=== PATIENT | female | born 1945 | race Caucasian/White ===

== ENCOUNTER 2022-11-27 13:52 | Inpatient (IN) | payer MEDICARE, OTHER ==
[2022-11-27] MEDS ORDERED: Metoprolol Tartrate 5 MG/5 ML VIAL ONE ×2 (14:23→15:18)
[2022-11-27] MEDS ORDERED: Aspirin Chewable 81 MG TAB ONE (14:23)
[2022-11-27 14:50] LABS: #Eosinphils 0.3 thou/uL (0.0-0.7); #Lymphocytes 2.2 thou/uL (1.20-3.40); #Monocytes 0.7 thou/uL (0.11-0.59); #Neutrophils 4.6 thou/uL (1.40-6.50); %Basophils 0.5 % (0.0-1.0); %Eosinophils 3.4 % (0.0-10.0); %Lymphocytes 28.5 % (21.0-51.0); %Monocytes 8.4 % (0.0-10.0); %Neutrophils 59.1 % (42.0-75.0); Hemoglobin 16.5 g/dL (12.0-16.0); Mean Corpuscular HGB CONC 33.2 g/dL (32.0-36.0); Mean Corpuscular Hemoglobin 32.7 pg (27.0-31.0); Mean Corpuscular Volume 98.4 fl (78.0-98.0); Mean Platelet Volume 8.5 fL (7.4-10.4); Platelet Count 232 10x3/uL (130-400); RBC Distribution Width 12.1 % (11.5-14.5); Red Blood Cell (RBC) Count 5.05 mill/uL (4.20-5.40); White Blood Cell (WBC) Count 7.8 10x3/uL (4.8-10.8)
[2022-11-27] MEDS ORDERED: Diltiazem 125 MG/25 ML SDV ONE (15:16)
[2022-11-27 15:19] LABS: ALT (SGPT) 13 U/L (8-55); AST (SGOT) 14 U/L (5-34); Albumin 4.3 g/dL (3.4-4.8); Alkaline Phosphatase 80 U/L (40-110); Anion Gap 12 mmol/L (10-20); BUN (Urea Nitrogen) 11 mg/dL (9.8-20.1); Calc. Creatinine Clearance 0 mL/min (70-130); Calcium 9.7 mg/dL (7.8-10.44); Carbon Dioxide 27 mmol/L (23-31); Chloride 104 mmol/L (98-107); Estimated GFR 80; Globulin 2.7 g/dL (2.4-3.5); Glucose 100 mg/dL (83-110); Potassium 3.4 mmol/L (3.5-5.1); Sodium 140 mmol/L (136-145)
[2022-11-27] MEDS ORDERED: Acetaminophen 325 MG TAB PO PRN (17:55)
[2022-11-27] MEDS ORDERED: Ondansetron ODT 4 MG TAB PO PRN (17:55)
[2022-11-27 18:07] LABS: Troponin I 0.014 ng/mL (< 0.028)
[2022-11-27] MEDS ORDERED: Diltiazem 125 MG in Sodium Chloride 0.9% 100 ML IVPB SCH (18:15)
[2022-11-27 18:28] VITALS: BMI 30.2
[2022-11-27 19:00] LABS: Magnesium 1.9 mg/dL (1.6-2.6)
[2022-11-27] MEDS ORDERED: Hydrochlorothiazide 25 MG TAB PO SCH (21:00)
[2022-11-27] MEDS ORDERED: Lisinopril 10 MG TAB PO SCH (21:00)
[2022-11-27] MEDS: Atorvastatin Calcium 20 MG TAB PO SCH (21:31)
[2022-11-27] MEDS: DorzolamidE/Timolol 2%/0.5% Ophth Soln 10 ml Bottle EA EYE SCH (21:31)
[2022-11-27 21:37] LABS: Troponin I 0.011 ng/mL (< 0.028)
[2022-11-28 05:21] LABS: #Basophils 0.1 thou/uL (0.0-0.2); #Eosinphils 0.3 thou/uL (0.0-0.7); #Lymphocytes 2.2 thou/uL (1.20-3.40); #Monocytes 0.7 thou/uL (0.11-0.59); #Neutrophils 4.4 thou/uL (1.40-6.50); %Basophils 0.8 % (0.0-1.0); %Lymphocytes 28.5 % (21.0-51.0); %Monocytes 9.2 % (0.0-10.0); %Neutrophils 57.5 % (42.0-75.0); Hemoglobin 14.2 g/dL (12.0-16.0); Mean Corpuscular HGB CONC 32.9 g/dL (32.0-36.0); Mean Corpuscular Hemoglobin 32.4 pg (27.0-31.0); Mean Corpuscular Volume 98.5 fl (78.0-98.0); Mean Platelet Volume 8.4 fL (7.4-10.4); Platelet Count 222 10x3/uL (130-400); RBC Distribution Width 11.9 % (11.5-14.5); Red Blood Cell (RBC) Count 4.38 mill/uL (4.20-5.40); White Blood Cell (WBC) Count 7.7 10x3/uL (4.8-10.8)
[2022-11-28 05:34] LABS: Anion Gap 11 mmol/L (10-20); BUN (Urea Nitrogen) 13 mg/dL (9.8-20.1); Calc. Creatinine Clearance 86 mL/min (70-130); Calcium 8.7 mg/dL (7.8-10.44); Carbon Dioxide 24 mmol/L (23-31); Chloride 107 mmol/L (98-107); Estimated GFR 86; Glucose 95 mg/dL (83-110); Magnesium 1.7 mg/dL (1.6-2.6); Potassium 3.3 mmol/L (3.5-5.1); Sodium 139 mmol/L (136-145)
[2022-11-28] MEDS ORDERED: Potassium Chloride 20 MEQ TAB PO SCH (07:30)
[2022-11-28] MEDS ORDERED: Magnesium Sulfate In Water 4 GM in Premix Bag 1 BAG IVPB SCH (08:00)
[2022-11-28] MEDS ORDERED: Electrolyte Replacement Protocol 1 EACH FS SCH (08:00)
[2022-11-28] MEDS ORDERED: Levothyroxine Sodium 100 MCG TAB PO SCH ×2 (08:15→09:00)
[2022-11-28] MEDS: DorzolamidE/Timolol 2%/0.5% Ophth Soln 10 ml Bottle EA EYE SCH ×2 (08:16→19:43)
[2022-11-28] MEDS ORDERED: Sodium Chloride 0.9% 500 ML IV SCH (10:30)
[2022-11-28] MEDS ORDERED: Diltiazem HCl 125 MG, Admixture Fee 1 EACH in Sodium Chloride 0.9% 100 ML IVPB SCH (15:00)
[2022-11-28] MEDS: Atorvastatin Calcium 20 MG TAB PO SCH (19:42)
[2022-11-29] MEDS: HYDROcodone/Acetaminophen 5/325 mg Tablet PO PRN ×2 (03:42→13:50)
[2022-11-29 05:14] LABS: #Eosinphils 0.3 thou/uL (0.0-0.7); #Lymphocytes 2.2 thou/uL (1.20-3.40); #Monocytes 0.7 thou/uL (0.11-0.59); #Neutrophils 4.7 thou/uL (1.40-6.50); %Basophils 0.6 % (0.0-1.0); %Eosinophils 3.6 % (0.0-10.0); %Lymphocytes 27.4 % (21.0-51.0); %Monocytes 9.1 % (0.0-10.0); %Neutrophils 59.2 % (42.0-75.0); Hemoglobin 13.5 g/dL (12.0-16.0); Mean Corpuscular Hemoglobin 33.7 pg (27.0-31.0); Mean Platelet Volume 8.3 fL (7.4-10.4); Platelet Count 203 10x3/uL (130-400); RBC Distribution Width 12.1 % (11.5-14.5); Red Blood Cell (RBC) Count 4.02 mill/uL (4.20-5.40); White Blood Cell (WBC) Count 7.9 10x3/uL (4.8-10.8)
[2022-11-29 05:37] LABS: Anion Gap 10 mmol/L (10-20); BUN (Urea Nitrogen) 24 mg/dL (9.8-20.1); Calc. Creatinine Clearance 84 mL/min (70-130); Calcium 8.5 mg/dL (7.8-10.44); Carbon Dioxide 26 mmol/L (23-31); Chloride 109 mmol/L (98-107); Estimated GFR 84; Glucose 107 mg/dL (83-110); Magnesium 2.2 mg/dL (1.6-2.6); Potassium 3.7 mmol/L (3.5-5.1); Sodium 141 mmol/L (136-145)
[2022-11-29] MEDS: Levothyroxine Sodium 100 MCG TAB PO SCH (05:58)
[2022-11-29] MEDS: DorzolamidE/Timolol 2%/0.5% Ophth Soln 10 ml Bottle EA EYE SCH ×2 (08:02→20:15)
[2022-11-29] MEDS ORDERED: CEFAZOLIN 2 GM VIAL ONE (10:04)
[2022-11-29] MEDS ORDERED: Lidocaine 1% (PF) 30 ML VIAL ONE (10:04)
[2022-11-29] MEDS ORDERED: CEFAZOLIN 1 GM VIAL ONE (10:04)
[2022-11-29] MEDS ORDERED: Gentamicin 80 MG/2 ML VIAL ONE (10:04)
[2022-11-29] MEDS ORDERED: Midazolam HCl 2 mg/2 ml Vial ONE (11:58)
[2022-11-29] MEDS ORDERED: FENTANYL 50 MCG/ML 1 ML VIAL ONE (11:58)
[2022-11-29] MEDS ORDERED: Ondansetron PF 4 MG/2 ML Vial ONE (12:00)
[2022-11-29] MEDS: Ondansetron PF 4 MG/2 ML Vial IVP PRN (13:50)
[2022-11-29] MEDS: Cephalexin 250 MG CAP PO SCH ×2 (17:00→20:12)
[2022-11-29] MEDS: Flecainide 50 MG TAB PO SCH (20:12)
[2022-11-29] MEDS: Atorvastatin Calcium 20 MG TAB PO SCH (20:12)
[2022-11-29] MEDS ORDERED: Metoprolol Tartrate 25 MG TAB PO SCH (21:00)
[2022-11-30] MEDS: Ondansetron PF 4 MG/2 ML Vial IVP PRN (00:50)
[2022-11-30 05:09] LABS: #Lymphocytes 1.9 thou/uL (1.20-3.40); #Monocytes 1.2 thou/uL (0.11-0.59); #Neutrophils 12.4 thou/uL (1.40-6.50); %Basophils 0.1 % (0.0-1.0); %Eosinophils 0.1 % (0.0-10.0); %Lymphocytes 12.5 % (21.0-51.0); %Monocytes 7.4 % (0.0-10.0); Hemoglobin 14.6 g/dL (12.0-16.0); Mean Corpuscular HGB CONC 33.5 g/dL (32.0-36.0); Mean Corpuscular Hemoglobin 33.4 pg (27.0-31.0); Mean Corpuscular Volume 99.6 fl (78.0-98.0); Platelet Count 227 10x3/uL (130-400); RBC Distribution Width 12.3 % (11.5-14.5); Red Blood Cell (RBC) Count 4.37 mill/uL (4.20-5.40); White Blood Cell (WBC) Count 15.5 10x3/uL (4.8-10.8)
[2022-11-30 05:28] LABS: Anion Gap 14 mmol/L (10-20); BUN (Urea Nitrogen) 26 mg/dL (9.8-20.1); Calc. Creatinine Clearance 71 mL/min (70-130); Calcium 8.9 mg/dL (7.8-10.44); Carbon Dioxide 23 mmol/L (23-31); Chloride 103 mmol/L (98-107); Estimated GFR 69; Glucose 134 mg/dL (83-110); Potassium 4.5 mmol/L (3.5-5.1); Sodium 135 mmol/L (136-145)
[2022-11-30] MEDS: Levothyroxine Sodium 100 MCG TAB PO SCH (05:32)
[2022-11-30] MEDS ORDERED: Magnesium 2 GM/50 ML(in water) 2 GM in Premix Bag 1 BAG IVPB SCH (08:00)
[2022-11-30] MEDS: Flecainide 50 MG TAB PO SCH (08:25)
[2022-11-30] MEDS: DorzolamidE/Timolol 2%/0.5% Ophth Soln 10 ml Bottle EA EYE SCH (08:27)
[2022-11-30] MEDS: Cephalexin 250 MG CAP PO SCH (11:59)
[2022-11-30 12:14] VITALS: BP 121/73; TEMP 97.8
[2022-12-04] MEDS ORDERED: Apixaban 5 MG TAB PO SCH (09:00)
== END 2022-11-30 14:15 | disposition home or self-care (01) | DRG 243 ==
LOC: ERS 13:52 → 2SW 17:09 → OBSVTOIN 11-28 13:27
PROVIDERS: ADMIT Internal Medicine; ATTEND Internal Medicine
PROC: 0JH606Z Insertion of Pacemaker, Dual Chamber into Chest Subcutaneous Tissue and Fascia, Open Approach (ICD-10-PCS; principal; 2022-11-29)
PROC: 02H63JZ Insertion of Pacemaker Lead into Right Atrium, Percutaneous Approach (ICD-10-PCS; 2022-11-29)
PROC: 02HK3JZ Insertion of Pacemaker Lead into Right Ventricle, Percutaneous Approach (ICD-10-PCS; 2022-11-29)
DX: I49.5 Sick sinus syndrome (principal); I47.1 Supraventricular tachycardia; I48.92 Unspecified atrial flutter; E03.9 Hypothyroidism, unspecified; I10 Essential (primary) hypertension; E78.5 Hyperlipidemia, unspecified; E87.6 Hypokalemia; I48.0 Paroxysmal atrial fibrillation; Z98.49 Cataract extraction status, unspecified eye; Z98.51 Tubal ligation status; Z90.49 Acquired absence of other specified parts of digestive tract; Z81.1 Family history of alcohol abuse and dependence; Z82.49 Family history of ischemic heart disease and other diseases of the circulatory system; Z83.3 Family history of diabetes mellitus; Z88.6 Allergy status to analgesic agent; Z88.8 Allergy status to other drugs, medicaments and biological substances; Z79.899 Other long term (current) drug therapy; Z79.890 Hormone replacement therapy
CPT/HCPCS: 33208; 36415; 71045; 80048; 80053; 83735; 83880; 84443; 84484; 85025; 93005; 93010; 93306; 96366; 96372; 96375; 97139; 99152; 99153; G0378; J0690; J1580; J1650; J2001; J2250; J2405; J3010; J3475; J3490

== ENCOUNTER 2023-02-08 17:19 | Inpatient (IN) | payer MEDICARE ==
[2023-02-08] MEDS ORDERED: Diltiazem 125 MG/25 ML SDV ONE (17:51)
[2023-02-08] MEDS ORDERED: Ondansetron PF 4 MG/2 ML Vial IVP PRN (18:38)
[2023-02-08] MEDS ORDERED: Morphine 2 MG/ML VIAL SLOW IVP PRN (18:38)
[2023-02-08 19:47] VITALS: BMI 30.9
[2023-02-09] MEDS ORDERED: Morphine 2 MG/ML VIAL SLOW IVP PRN (04:24)
[2023-02-09] MEDS ORDERED: Lidocaine 4% Patch TD SCH (04:30)
[2023-02-09 04:53] LABS: #Basophils 0.1 thou/uL (0.0-0.2); #Eosinphils 0.2 thou/uL (0.0-0.7); #Monocytes 0.9 thou/uL (0.11-0.59); #Neutrophils 7.3 thou/uL (1.40-6.50); %Basophils 0.5 % (0.0-1.0); %Eosinophils 1.5 % (0.0-10.0); %Lymphocytes 14.7 % (21.0-51.0); %Monocytes 8.7 % (0.0-10.0); %Neutrophils 74.3 % (42.0-75.0); Hemoglobin 13.1 g/dL (12.0-16.0); Mean Corpuscular HGB CONC 33.2 g/dL (32.0-36.0); Mean Corpuscular Hemoglobin 32.3 pg (27.0-31.0); Mean Corpuscular Volume 97.3 fl (78.0-98.0); Platelet Count 277 10x3/uL (130-400); RBC Distribution Width 13.2 % (11.5-14.5); Red Blood Cell (RBC) Count 4.06 mill/uL (4.20-5.40); White Blood Cell (WBC) Count 9.8 10x3/uL (4.8-10.8)
[2023-02-09 05:15] LABS: Anion Gap 9 mmol/L (10-20); BUN (Urea Nitrogen) 16 mg/dL (9.8-20.1); Calc. Creatinine Clearance 86 mL/min (70-130); Calcium 8.8 mg/dL (7.8-10.44); Carbon Dioxide 27 mmol/L (23-31); Chloride 106 mmol/L (98-107); Estimated GFR 84; Glucose 94 mg/dL (83-110); Potassium 3.4 mmol/L (3.5-5.1); Sodium 139 mmol/L (136-145)
[2023-02-09] MEDS: Levothyroxine Sodium 100 MCG TAB PO SCH (05:55)
[2023-02-09] MEDS ORDERED: Potassium Chloride 20 MEQ in Premix Bag 1 BAG IVPB SCH (10:15)
[2023-02-09] MEDS: Diltiazem 125 MG in Sodium Chloride 0.9% 100 ML IVPB SCH (15:41)
[2023-02-09] MEDS: Acetaminophen 325 MG TAB PO PRN (16:26)
[2023-02-09] MEDS ORDERED: Transdermal Patch Removal TOP SCH (16:30)
[2023-02-09] MEDS: cefTRIAXone\\ROCEPHIN 2 GM in Sodium Chloride 0.9% 100 ML IVPB SCH (17:01)
[2023-02-09] MEDS: DorzolamidE/Timolol 2%/0.5% Ophth Soln 10 ml Bottle EA EYE SCH (20:43)
[2023-02-09] MEDS: Atorvastatin Calcium 20 MG TAB PO SCH (20:43)
[2023-02-10] MEDS: Acetaminophen 325 MG TAB PO PRN ×2 (02:18→16:15)
[2023-02-10 04:53] LABS: #Basophils 0.1 thou/uL (0.0-0.2); #Eosinphils 0.4 thou/uL (0.0-0.7); #Monocytes 0.9 thou/uL (0.11-0.59); %Basophils 0.7 % (0.0-1.0); %Lymphocytes 17.9 % (21.0-51.0); %Monocytes 10.5 % (0.0-10.0); %Neutrophils 66.6 % (42.0-75.0); Hemoglobin 12.5 g/dL (12.0-16.0); Mean Corpuscular HGB CONC 32.7 g/dL (32.0-36.0); Mean Corpuscular Hemoglobin 31.6 pg (27.0-31.0); Mean Corpuscular Volume 96.5 fl (78.0-98.0); Mean Platelet Volume 9.9 fL (7.4-10.4); Platelet Count 272 10x3/uL (130-400); RBC Distribution Width 13.2 % (11.5-14.5); Red Blood Cell (RBC) Count 3.96 mill/uL (4.20-5.40)
[2023-02-10 05:16] LABS: Anion Gap 10 mmol/L (10-20); BUN (Urea Nitrogen) 19 mg/dL (9.8-20.1); Calc. Creatinine Clearance 88 mL/min (70-130); Calcium 8.8 mg/dL (7.8-10.44); Carbon Dioxide 26 mmol/L (23-31); Chloride 103 mmol/L (98-107); Estimated GFR 86; Glucose 102 mg/dL (83-110); Potassium 3.5 mmol/L (3.5-5.1); Sodium 135 mmol/L (136-145)
[2023-02-10] MEDS: Levothyroxine Sodium 100 MCG TAB PO SCH (05:27)
[2023-02-10] MEDS: Lisinopril/Hydrochlorothiazide 10 mg/12.5 mg Tablet PO SCH (09:29)
[2023-02-10] MEDS: DorzolamidE/Timolol 2%/0.5% Ophth Soln 10 ml Bottle EA EYE SCH ×2 (09:30→21:26)
[2023-02-10] MEDS: cefTRIAXone\\ROCEPHIN 2 GM in Sodium Chloride 0.9% 100 ML IVPB SCH (17:57)
[2023-02-10] MEDS: Diltiazem 125 MG in Sodium Chloride 0.9% 100 ML IVPB SCH (19:33)
[2023-02-10] MEDS: Amiodarone 200 MG TAB PO SCH (21:26)
[2023-02-10] MEDS: Atorvastatin Calcium 20 MG TAB PO SCH (21:26)
[2023-02-11] MEDS: Acetaminophen 325 MG TAB PO PRN ×2 (03:32→16:13)
[2023-02-11 04:17] LABS: #Basophils 0.1 thou/uL (0.0-0.2); #Eosinphils 0.4 thou/uL (0.0-0.7); #Monocytes 0.9 thou/uL (0.11-0.59); #Neutrophils 6.4 thou/uL (1.40-6.50); %Basophils 0.5 % (0.0-1.0); %Eosinophils 4.1 % (0.0-10.0); %Lymphocytes 17.7 % (21.0-51.0); %Monocytes 9.7 % (0.0-10.0); %Neutrophils 67.7 % (42.0-75.0); Hemoglobin 12.2 g/dL (12.0-16.0); Mean Corpuscular HGB CONC 32.4 g/dL (32.0-36.0); Mean Corpuscular Hemoglobin 31.9 pg (27.0-31.0); Mean Corpuscular Volume 98.2 fl (78.0-98.0); Platelet Count 272 10x3/uL (130-400); RBC Distribution Width 13.3 % (11.5-14.5); Red Blood Cell (RBC) Count 3.83 mill/uL (4.20-5.40); White Blood Cell (WBC) Count 9.5 10x3/uL (4.8-10.8)
[2023-02-11 04:50] LABS: Anion Gap 11 mmol/L (10-20); BUN (Urea Nitrogen) 17 mg/dL (9.8-20.1); Calc. Creatinine Clearance 89 mL/min (70-130); Calcium 8.6 mg/dL (7.8-10.44); Carbon Dioxide 26 mmol/L (23-31); Chloride 103 mmol/L (98-107); Estimated GFR 88; Glucose 109 mg/dL (83-110); Potassium 3.4 mmol/L (3.5-5.1); Sodium 137 mmol/L (136-145)
[2023-02-11] MEDS: Levothyroxine Sodium 100 MCG TAB PO SCH (05:07)
[2023-02-11] MEDS ORDERED: fentaNYL 50 mcg/mL 1 mL Vial ONE ×3 (06:50→10:16)
[2023-02-11] MEDS ORDERED: SUGAMMADEX SODIUM 200 MG/2 ML VIAL ONE (06:50)
[2023-02-11] MEDS ORDERED: Midazolam HCl 2 mg/2 ml Vial ONE (06:50)
[2023-02-11] MEDS ORDERED: Bupivacaine/Epinephrine 0.25% 30 ML VIAL ONE (08:06)
[2023-02-11] MEDS ORDERED: Lidocaine 1% PF 5 ML VIAL ONE (09:08)
[2023-02-11] MEDS ORDERED: Rocuronium Bromide 10 MG/ML (10ML VIAL) ONE (09:08)
[2023-02-11] MEDS ORDERED: Dexamethasone 20 MG/5 ML VIAL ONE (09:08)
[2023-02-11] MEDS ORDERED: PROPOFOL 200 MG/20 ML VIAL ONE (09:08)
[2023-02-11] MEDS ORDERED: Ondansetron PF 4 MG/2 ML Vial ONE (09:08)
[2023-02-11] MEDS ORDERED: Bupivacaine HCl 0.5%/Epinephrine 1:200,000/PF 30 ml Vial ONE (10:03)
[2023-02-11] MEDS ORDERED: Ondansetron HCl/PF 4 MG/2 ML Vial IVP PRN (10:13)
[2023-02-11] MEDS ORDERED: Promethazine HCl 25 MG/ML VIAL IM PRN (10:13)
[2023-02-11] MEDS: Lisinopril/Hydrochlorothiazide 10 mg/12.5 mg Tablet PO SCH (13:42)
[2023-02-11] MEDS: DorzolamidE/Timolol 2%/0.5% Ophth Soln 10 ml Bottle EA EYE SCH ×2 (13:53→20:24)
[2023-02-11] MEDS: cefTRIAXone\\ROCEPHIN 2 GM in Sodium Chloride 0.9% 100 ML IVPB SCH (17:07)
[2023-02-11] MEDS: Atorvastatin Calcium 20 MG TAB PO SCH (20:24)
[2023-02-11] MEDS: Amiodarone 200 MG TAB PO SCH (20:24)
[2023-02-12] MEDS: Diltiazem 125 MG in Sodium Chloride 0.9% 100 ML IVPB SCH (03:41)
[2023-02-12] MEDS: Levothyroxine Sodium 100 MCG TAB PO SCH (05:16)
[2023-02-12] MEDS: Acetaminophen 325 MG TAB PO PRN ×3 (05:16→20:24)
[2023-02-12] MEDS: Sodium Chloride 0.9% 1,000 ML IV SCH ×3 (05:20→17:29)
[2023-02-12 05:23] LABS: #Monocytes 0.7 thou/uL (0.11-0.59); #Neutrophils 12.8 thou/uL (1.40-6.50); %Basophils 0.1 % (0.0-1.0); %Lymphocytes 5.8 % (21.0-51.0); %Monocytes 5.1 % (0.0-10.0); %Neutrophils 88.3 % (42.0-75.0); Hemoglobin 12.5 g/dL (12.0-16.0); Mean Corpuscular HGB CONC 32.5 g/dL (32.0-36.0); Mean Corpuscular Hemoglobin 31.6 pg (27.0-31.0); Mean Corpuscular Volume 97.5 fl (78.0-98.0); Mean Platelet Volume 10.2 fL (7.4-10.4); Platelet Count 318 10x3/uL (130-400); RBC Distribution Width 12.9 % (11.5-14.5); Red Blood Cell (RBC) Count 3.95 mill/uL (4.20-5.40); White Blood Cell (WBC) Count 14.5 10x3/uL (4.8-10.8)
[2023-02-12 05:45] LABS: Anion Gap 9 mmol/L (10-20); BUN (Urea Nitrogen) 17 mg/dL (9.8-20.1); Calc. Creatinine Clearance 94 mL/min (70-130); Calcium 8.6 mg/dL (7.8-10.44); Carbon Dioxide 24 mmol/L (23-31); Chloride 105 mmol/L (98-107); Estimated GFR 89; Glucose 141 mg/dL (83-110); Potassium 3.8 mmol/L (3.5-5.1); Sodium 134 mmol/L (136-145)
[2023-02-12] MEDS: DorzolamidE/Timolol 2%/0.5% Ophth Soln 10 ml Bottle EA EYE SCH ×2 (08:40→20:26)
[2023-02-12] MEDS: Lisinopril/Hydrochlorothiazide 10 mg/12.5 mg Tablet PO SCH (09:34)
[2023-02-12] MEDS: Bisacodyl 5 MG TAB PO PRN (17:29)
[2023-02-12] MEDS: cefTRIAXone\\ROCEPHIN 2 GM in Sodium Chloride 0.9% 100 ML IVPB SCH (17:29)
[2023-02-12] MEDS: Atorvastatin Calcium 20 MG TAB PO SCH (20:19)
[2023-02-12] MEDS: Amiodarone 200 MG TAB PO SCH (20:19)
[2023-02-13] MEDS: Diltiazem 125 MG in Sodium Chloride 0.9% 100 ML IVPB SCH (03:47)
[2023-02-13] MEDS: Sodium Chloride 0.9% 1,000 ML IV SCH (05:43)
[2023-02-13] MEDS: Levothyroxine Sodium 100 MCG TAB PO SCH (05:43)
[2023-02-13] MEDS: Lisinopril/Hydrochlorothiazide 10 mg/12.5 mg Tablet PO SCH (08:59)
[2023-02-13] MEDS: DorzolamidE/Timolol 2%/0.5% Ophth Soln 10 ml Bottle EA EYE SCH ×2 (08:59→20:20)
[2023-02-13] MEDS ORDERED: Furosemide 20 MG/2 ML VIAL SLOW IVP SCH (17:30)
[2023-02-13] MEDS: cefTRIAXone\\ROCEPHIN 2 GM in Sodium Chloride 0.9% 100 ML IVPB SCH (18:17)
[2023-02-13] MEDS: Apixaban 5 MG TAB PO SCH (20:20)
[2023-02-13] MEDS: Atorvastatin Calcium 20 MG TAB PO SCH (20:20)
[2023-02-13] MEDS: Amiodarone 200 MG TAB PO SCH (20:21)
[2023-02-14] MEDS: Levothyroxine Sodium 100 MCG TAB PO SCH (05:44)
[2023-02-14] MEDS: DorzolamidE/Timolol 2%/0.5% Ophth Soln 10 ml Bottle EA EYE SCH ×2 (08:52→20:24)
[2023-02-14] MEDS: Lisinopril/Hydrochlorothiazide 10 mg/12.5 mg Tablet PO SCH (08:52)
[2023-02-14] MEDS: Apixaban 5 MG TAB PO SCH ×2 (08:52→20:23)
[2023-02-14] MEDS: cefTRIAXone\\ROCEPHIN 2 GM in Sodium Chloride 0.9% 100 ML IVPB SCH (17:10)
[2023-02-14] MEDS: Atorvastatin Calcium 20 MG TAB PO SCH (20:23)
[2023-02-14] MEDS: Amiodarone 200 MG TAB PO SCH (20:23)
[2023-02-14] MEDS: Acetaminophen 325 MG TAB PO PRN (20:23)
[2023-02-15] MEDS: Acetaminophen 325 MG TAB PO PRN (01:45)
[2023-02-15 04:48] LABS: Hemoglobin 14.9 g/dL (12.0-16.0); Mean Corpuscular HGB CONC 33.2 g/dL (32.0-36.0); Mean Corpuscular Hemoglobin 31.8 pg (27.0-31.0); Mean Corpuscular Volume 95.7 fl (78.0-98.0); Mean Platelet Volume 9.6 fL (7.4-10.4); Platelet Count 409 10x3/uL (130-400); RBC Distribution Width 13.2 % (11.5-14.5); Red Blood Cell (RBC) Count 4.69 mill/uL (4.20-5.40); White Blood Cell (WBC) Count 10.3 10x3/uL (4.8-10.8)
[2023-02-15] MEDS: Levothyroxine Sodium 100 MCG TAB PO SCH (06:12)
[2023-02-15] MEDS: DorzolamidE/Timolol 2%/0.5% Ophth Soln 10 ml Bottle EA EYE SCH ×2 (09:58→21:00)
[2023-02-15] MEDS: Lisinopril/Hydrochlorothiazide 10 mg/12.5 mg Tablet PO SCH (09:58)
[2023-02-15] MEDS: Apixaban 5 MG TAB PO SCH ×2 (09:59→20:32)
[2023-02-15] MEDS ORDERED: Furosemide 20 MG/2 ML VIAL SLOW IVP SCH (11:00)
[2023-02-15 12:04] LABS: #Basophils 0.1 thou/uL (0.0-0.2); #Eosinphils 0.3 thou/uL (0.0-0.7); #Monocytes 0.9 thou/uL (0.11-0.59); #Neutrophils 7.9 thou/uL (1.40-6.50); %Basophils 0.7 % (0.0-1.0); %Eosinophils 2.7 % (0.0-10.0); %Lymphocytes 16.6 % (21.0-51.0); %Monocytes 8.2 % (0.0-10.0); %Neutrophils 71.3 % (42.0-75.0); Mean Corpuscular HGB CONC 32.9 g/dL (32.0-36.0); Mean Corpuscular Hemoglobin 31.3 pg (27.0-31.0); Mean Corpuscular Volume 95.2 fl (78.0-98.0); Mean Platelet Volume 9.6 fL (7.4-10.4); Platelet Count 405 10x3/uL (130-400); RBC Distribution Width 13.2 % (11.5-14.5); Red Blood Cell (RBC) Count 4.79 mill/uL (4.20-5.40); White Blood Cell (WBC) Count 11.1 10x3/uL (4.8-10.8)
[2023-02-15 12:31] LABS: ALT (SGPT) 15 U/L (8-55); AST (SGOT) 13 U/L (5-34); Albumin 3.3 g/dL (3.4-4.8); Alkaline Phosphatase 83 U/L (40-110); Anion Gap 9 mmol/L (10-20); BUN (Urea Nitrogen) 18 mg/dL (9.8-20.1); Bilirubin, Total 0.3 mg/dL (0.2-1.2); Calc. Creatinine Clearance 90 mL/min (70-130); Calcium 8.9 mg/dL (7.8-10.44); Carbon Dioxide 31 mmol/L (23-31); Chloride 100 mmol/L (98-107); Estimated GFR 88; Globulin 2.7 g/dL (2.4-3.5); Glucose 95 mg/dL (83-110); Sodium 136 mmol/L (136-145)
[2023-02-15] MEDS: Amiodarone 200 MG TAB PO SCH (20:32)
[2023-02-15] MEDS: Atorvastatin Calcium 20 MG TAB PO SCH (20:32)
[2023-02-16] MEDS: Acetaminophen 325 MG TAB PO PRN ×2 (05:04→21:23)
[2023-02-16] MEDS: Levothyroxine Sodium 100 MCG TAB PO SCH (05:05)
[2023-02-16 05:09] LABS: #Basophils 0.1 thou/uL (0.0-0.2); #Eosinphils 0.3 thou/uL (0.0-0.7); #Neutrophils 6.9 thou/uL (1.40-6.50); %Basophils 0.6 % (0.0-1.0); %Eosinophils 2.7 % (0.0-10.0); %Lymphocytes 20.1 % (21.0-51.0); %Monocytes 9.4 % (0.0-10.0); %Neutrophils 66.6 % (42.0-75.0); Hemoglobin 14.9 g/dL (12.0-16.0); Mean Corpuscular HGB CONC 33.7 g/dL (32.0-36.0); Mean Corpuscular Hemoglobin 31.9 pg (27.0-31.0); Mean Corpuscular Volume 94.6 fl (78.0-98.0); Mean Platelet Volume 9.8 fL (7.4-10.4); Platelet Count 373 10x3/uL (130-400); RBC Distribution Width 13.2 % (11.5-14.5); Red Blood Cell (RBC) Count 4.67 mill/uL (4.20-5.40); White Blood Cell (WBC) Count 10.4 10x3/uL (4.8-10.8)
[2023-02-16 05:47] LABS: ALT (SGPT) 12 U/L (8-55); AST (SGOT) 11 U/L (5-34); Albumin 3.1 g/dL (3.4-4.8); Alkaline Phosphatase 78 U/L (40-110); Anion Gap 10 mmol/L (10-20); BUN (Urea Nitrogen) 16 mg/dL (9.8-20.1); Bilirubin, Total 0.6 mg/dL (0.2-1.2); Calc. Creatinine Clearance 89 mL/min (70-130); Calcium 8.8 mg/dL (7.8-10.44); Carbon Dioxide 30 mmol/L (23-31); Chloride 101 mmol/L (98-107); Estimated GFR 86; Globulin 2.5 g/dL (2.4-3.5); Glucose 99 mg/dL (83-110); Potassium 3.6 mmol/L (3.5-5.1); Protein, Total 5.6 g/dL (5.8-8.1); Sodium 137 mmol/L (136-145)
[2023-02-16] MEDS: DorzolamidE/Timolol 2%/0.5% Ophth Soln 10 ml Bottle EA EYE SCH ×2 (09:43→20:47)
[2023-02-16] MEDS: Apixaban 5 MG TAB PO SCH ×2 (09:43→20:48)
[2023-02-16] MEDS: Furosemide 40 MG TAB PO SCH (09:43)
[2023-02-16] MEDS: Lisinopril/Hydrochlorothiazide 10 mg/12.5 mg Tablet PO SCH (09:47)
[2023-02-16] MEDS: Cephalexin 250 MG CAP PO SCH ×2 (17:18→23:50)
[2023-02-16] MEDS: Amiodarone 200 MG TAB PO SCH (20:48)
[2023-02-16] MEDS: Atorvastatin Calcium 20 MG TAB PO SCH (20:48)
[2023-02-17] MEDS: Cephalexin 250 MG CAP PO SCH ×4 (06:31→23:14)
[2023-02-17] MEDS: Levothyroxine Sodium 100 MCG TAB PO SCH (06:31)
[2023-02-17] MEDS: Lisinopril/Hydrochlorothiazide 10 mg/12.5 mg Tablet PO SCH (08:59)
[2023-02-17] MEDS: Furosemide 40 MG TAB PO SCH (09:00)
[2023-02-17] MEDS: Apixaban 5 MG TAB PO SCH ×2 (09:00→20:09)
[2023-02-17] MEDS: Bisacodyl 5 MG TAB PO PRN (09:01)
[2023-02-17] MEDS: DorzolamidE/Timolol 2%/0.5% Ophth Soln 10 ml Bottle EA EYE SCH ×2 (09:04→20:09)
[2023-02-17] MEDS: Acetaminophen 325 MG TAB PO PRN (20:09)
[2023-02-17] MEDS: Amiodarone 200 MG TAB PO SCH (20:09)
[2023-02-17] MEDS: Atorvastatin Calcium 20 MG TAB PO SCH (20:09)
[2023-02-18] MEDS: Cephalexin 250 MG CAP PO SCH ×3 (05:50→18:10)
[2023-02-18] MEDS: Levothyroxine Sodium 100 MCG TAB PO SCH (05:50)
[2023-02-18] MEDS: Furosemide 40 MG TAB PO SCH (09:13)
[2023-02-18] MEDS: Lisinopril/Hydrochlorothiazide 10 mg/12.5 mg Tablet PO SCH (09:13)
[2023-02-18] MEDS: Apixaban 5 MG TAB PO SCH ×2 (09:13→21:10)
[2023-02-18] MEDS: DorzolamidE/Timolol 2%/0.5% Ophth Soln 10 ml Bottle EA EYE SCH ×2 (09:14→21:11)
[2023-02-18] MEDS ORDERED: PROPOFOL 200 MG/20 ML VIAL ONE (14:12)
[2023-02-18] MEDS ORDERED: PHENYLEPHRINE-NS 100 MCG/ML 10 ML SYRINGE ONE (14:12)
[2023-02-18] MEDS ORDERED: Lidocaine 1% PF 5 ML VIAL ONE (14:12)
[2023-02-18] MEDS: Amiodarone 200 MG TAB PO SCH (21:10)
[2023-02-18] MEDS: Atorvastatin Calcium 20 MG TAB PO SCH (21:10)
[2023-02-18] MEDS: Acetaminophen 325 MG TAB PO PRN (21:12)
[2023-02-18] MEDS ORDERED: Sodium Chloride 0.9% 250 ML 200 ML IVPB SCH (22:30)
[2023-02-19] MEDS: Cephalexin 250 MG CAP PO SCH ×3 (01:55→11:05)
[2023-02-19] MEDS: Levothyroxine Sodium 100 MCG TAB PO SCH (05:54)
[2023-02-19] MEDS: Apixaban 5 MG TAB PO SCH (09:08)
[2023-02-19] MEDS: Furosemide 40 MG TAB PO SCH (09:09)
[2023-02-19] MEDS: DorzolamidE/Timolol 2%/0.5% Ophth Soln 10 ml Bottle EA EYE SCH (09:09)
[2023-02-19] MEDS: Lisinopril/Hydrochlorothiazide 10 mg/12.5 mg Tablet PO SCH (09:09)
[2023-02-19] MEDS ORDERED: Sodium Chloride 0.9% 500 ML IV SCH (09:15)
[2023-02-19 12:21] VITALS: BP 133/66; TEMP 98
== END 2023-02-19 15:10 | disposition home or self-care (01) | DRG 315 ==
LOC: ERS 17:19 → SUATTDRO 17:19 → 2NO 18:30 → OBSVTOIN 02-10 19:38
PROVIDERS: ADMIT Family Medicine; ATTEND Internal Medicine
PROC: 0W9D3ZZ Drainage of Pericardial Cavity, Percutaneous Approach (ICD-10-PCS; principal; 2023-02-11)
PROC: 5A2204Z Restoration of Cardiac Rhythm, Single (ICD-10-PCS; 2023-02-18)
PROC: B24BZZ4 Ultrasonography of Heart with Aorta, Transesophageal (ICD-10-PCS; 2023-02-18)
DX: I31.39 Other pericardial effusion (noninflammatory) (principal); E87.1 Hypo-osmolality and hyponatremia; N39.0 Urinary tract infection, site not specified; T80.1XXA Vascular complications following infusion, transfusion and therapeutic injection, initial encounter; E03.9 Hypothyroidism, unspecified; I48.91 Unspecified atrial fibrillation; I10 Essential (primary) hypertension; E87.6 Hypokalemia; E78.5 Hyperlipidemia, unspecified; I95.9 Hypotension, unspecified; I80.8 Phlebitis and thrombophlebitis of other sites; I48.0 Paroxysmal atrial fibrillation; E88.09 Other disorders of plasma-protein metabolism, not elsewhere classified; Z79.01 Long term (current) use of anticoagulants; Z95.0 Presence of cardiac pacemaker; Z88.6 Allergy status to analgesic agent; Z88.8 Allergy status to other drugs, medicaments and biological substances; Z79.890 Hormone replacement therapy; Z79.899 Other long term (current) drug therapy; Z90.49 Acquired absence of other specified parts of digestive tract; Z98.49 Cataract extraction status, unspecified eye; Z98.51 Tubal ligation status; Z82.49 Family history of ischemic heart disease and other diseases of the circulatory system
CPT/HCPCS: 36415; 71045; 71046; 80048; 80053; 84145; 84439; 84443; 85025; 85027; 85652; 86140; 87086; 88112; 88305; 93306; 93312; 96365; 96366; 96375; 96376; G0378; J0696; J1100; J1940; J2250; J2405; J2704; J3010; J3480; J3490; J7030; J7050

== ENCOUNTER 2023-03-06 13:17 | Outpatient (CLI) | payer MEDICARE | END 2023-03-06 13:18 | disposition home or self-care (01) | LOC: RAD 13:17 | PROVIDERS: ATTEND Thoracic Surgery (Cardiothoracic Vascular Surgery) | DX: I31.4 Cardiac tamponade (principal) | CPT/HCPCS: 71046 ==